=== PATIENT | male | born 1965 | race Two or more races ===

== ENCOUNTER 2021-02-27 12:06 | Inpatient (IN) | payer BC ==
[~2021-02-27] VITALS: Ht 182.9 cm; Wt 94.3 kg
[2021-02-27] VITALS (23 sets, daily range): BP systolic 118–151; BP diastolic 57–112
[2021-02-27] MEDS ORDERED: SODIUM CHLORIDE 0.9% 1,000 ML IV ONE (12:30)
[2021-02-27 12:58] LABS: HEMATOCRIT. 47.5 % (42.0-52.0); MEAN CORPUSCULAR VOLUME 85.3 fL (80.0-94.0); MEAN PLATELET VOLUME 8.6 fl (7.4-10.4); PLATELET 309 x1000/uL (130-400); RED BLOOD CELL COUNT 5.57 mill/uL (4.7-6.1); RED CELL DISTRIBUTION WIDTH 13.5 % (11.6-14.6)
[2021-02-27 13:03] LABS: CHLORIDE 110 mEq/L (98-107)
[2021-02-27 13:08] LABS: ETHANOL BLOOD < 10 mg/dL
[2021-02-27 13:20] LABS: CLARITY URINE CLEAR (CLEAR); COLOR URINE YELLOW (YELLOW); KETONES URINE NEGATIVE (NEGATIVE); LEUKOCYTE ESTERASE URINE NEGATIVE (NEGATIVE); NITRITE URINE NEGATIVE (NEGATIVE); OCCULT BLOOD URINE 3+ (NEGATIVE); PROTEIN URINE 2+ (NEGATIVE); SPECIFIC GRAVITY URINE 1.017 (1.005-1.030)
[2021-02-27 13:24] LABS: INR 1.2; PROTHROMBIN TIME 13.2 sec (9.6-11.0)
[2021-02-27 13:29] LABS: CREATINE KINASE 6831 IU/L (39-308)
[2021-02-27 13:40] LABS: *BARBITURATES SCREEN URINE NEGATIVE (NEGATIVE)
[2021-02-27 13:41] LABS: *AMPHETAMINES SCREEN URINE NEGATIVE (NEGATIVE); *BENZODIAZEPINES SCREEN URINE NEGATIVE (NEGATIVE); *COCAINE SCREEN URINE NEGATIVE (NEGATIVE); CANNABINOID URINE SCREEN NEGATIVE (NEGATIVE); METHADONE URINE SCREEN NEGATIVE (NEGATIVE); OPIATES URINE SCREEN NEGATIVE (NEGATIVE)
[2021-02-27 13:43] LABS: PHENCYCLIDINE URINE SCREEN NEGATIVE (NEGATIVE)
[2021-02-27 14:10] LABS: PLATELET ESTIMATE NORMAL
[2021-02-27] MEDS ORDERED: NICARDIPINE 40MG/200ML PREMIX 200 ML IV STA (14:12)
[2021-02-27] MEDS ORDERED: ONDANSETRON HCL 4MG/2ML INJ IV ONE (14:45)
[2021-02-27] MEDS: DEXT 5%/LACTATED RINGERS 1,000 ML IV SCH (19:54)
[2021-02-27] MEDS ORDERED: DEXTROSE 50% WATER 50ML SYRINGE IV PRN (20:45)
[2021-02-27] MEDS: BLOOD SUGAR DIAGNOSTIC STRIP TEST SCH (21:36)
[2021-02-27] MEDS: INSULIN LISPRO 100 UNITS/ML SUBCUT SCH (22:13)
[2021-02-28] VITALS (95 sets, daily range): BP systolic 95–170; BP diastolic 39–101
[2021-02-28] MEDS: DEXAMETHASONE 4MG/ML 1ML VIAL IV SCH ×4 (01:04→17:14)
[2021-02-28] MEDS: NICARDIPINE 100 MG in SODIUM CHLORIDE 0.9% 60 ML IV PRN ×2 (02:33→12:53)
[2021-02-28 04:54] LABS: HEMATOCRIT. 43.4 % (42.0-52.0); HEMOGLOBIN. 14.4 g/dL (14.0-18.0); MEAN PLATELET VOLUME 9.3 fl (7.4-10.4); PLATELET 265 x1000/uL (130-400); RED BLOOD CELL COUNT 5.36 mill/uL (4.7-6.1); RED CELL DISTRIBUTION WIDTH 13.4 % (11.6-14.6)
[2021-02-28 05:00] LABS: CHLORIDE 113 mEq/L (98-107)
[2021-02-28] MEDS: BLOOD SUGAR DIAGNOSTIC STRIP TEST SCH ×4 (06:30→21:00)
[2021-02-28] MEDS: INSULIN LISPRO 100 UNITS/ML SUBCUT SCH ×4 (06:35→22:24)
[2021-02-28] MEDS ORDERED: SODIUM CHLORIDE 0.9% 10ML VIAL ONE (08:07)
[2021-02-28] MEDS ORDERED: ETOMIDATE 2MG/ML 10ML VIAL IV ONE (08:07)
[2021-02-28] MEDS ORDERED: SUCCINYLCHOLINE CHLORIDE 200MG/10ML IV ONE (08:07)
[2021-02-28] MEDS: PANTOPRAZOLE SODIUM 40 MG/VIAL IV SCH (08:08)
[2021-02-28] MEDS: MORPHINE SULFATE 2 MG/ML CPJ (NOT FOR IM USE) IV PRN ×2 (08:09→14:24)
[2021-02-28] MEDS ORDERED: NALOXONE HCL 0.4MG/ML VIAL IV PRN (08:15)
[2021-02-28 10:58] LABS: PLATELET ESTIMATE NORMAL
[2021-02-28] MEDS ORDERED: MORPHINE SULFATE 2 MG/ML CPJ (NOT FOR IM USE) IV PRN (13:30)
[2021-02-28 14:07] LABS: BG CARBOXYHEMOGLOBIN 0.3 % (0.5-1.5); BG DEOXYHEMOGLOBIN 1.3 % (0.0-5.0); BG FRACTION INSPIRED OXYGEN 100; BG HCO3 ACT 7.1 mmol/L (22.0-26.0); BG METHEMOGLOBIN 0.5 % (0.0-1.5); BG OXYGEN SATURATION 98.7 % (92.0-98.5); BG OXYHEMOGLOBIN 97.9 % (94.0-97.0); BG PCO2 21.1 mmHg (35.0-45.0); BG PH 7.143 (7.350-7.450); BG PO2 195.2 mmHg (75.0-100.0); BG SAMPLE SITE RIGHT RADIAL; BG TOTAL HEMOGLOBIN 14.4 g/dL (12.0-18.0); BG VENT MODE MASK - NRB
[2021-02-28] MEDS ORDERED: SODIUM BICARBONATE 8.4% 1 MEQ/ML 50ML SYR IV NR (14:30)
[2021-02-28] MEDS: DEXT 5%/LACTATED RINGERS 1,000 ML IV SCH (14:37)
[2021-02-28] MEDS ORDERED: LEVETIRACETAM 500 MG in SODIUM CHLORIDE 0.9% 100 ML IV SCH (15:00)
[2021-02-28] MEDS ORDERED: LEVETIRACETAM 500MG PREMIX 100 ML IV SCH (15:00)
[2021-02-28] MEDS ORDERED: PROPOFOL 10MG/ML 100ML 100 ML IV PRN (15:45)
[2021-02-28] MEDS ORDERED: PHENYTOIN SODIUM 1,000 MG in SODIUM CHLORIDE 0.9% 100 ML IV SCH (16:00)
[2021-02-28] MEDS ORDERED: NOREPINEPHRINE 32 MG in DEXT 5% WATER 218 ML IV PRN (16:00)
[2021-02-28] MEDS: PROPOFOL 10MG/ML 100ML 100 ML IV PRN ×2 (16:00→23:03)
[2021-02-28] MEDS ORDERED: PHENYLEPHRINE 100 MG in DEXT 5% WATER 240 ML IV PRN (16:00)
[2021-02-28 17:05] LABS: BG BASE EXCESS -13.5 mmol/L (-2.0-2.0); BG CARBOXYHEMOGLOBIN 0.3 % (0.5-1.5); BG DEOXYHEMOGLOBIN 1.2 % (0.0-5.0); BG FRACTION INSPIRED OXYGEN 100; BG HCO3 ACT 11.4 mmol/L (22.0-26.0); BG METHEMOGLOBIN 0.8 % (0.0-1.5); BG OXYGEN SATURATION 98.8 % (92.0-98.5); BG OXYHEMOGLOBIN 97.7 % (94.0-97.0); BG PCO2 24.7 mmHg (35.0-45.0); BG PH 7.281 (7.350-7.450); BG PO2 221.7 mmHg (75.0-100.0); BG SAMPLE SITE RIGHT RADIAL; BG TOTAL HEMOGLOBIN 13.4 g/dL (12.0-18.0); BG VENT MODE PRVC
[2021-02-28] MEDS ORDERED: LORAZEPAM 2MG/ML CPJ IV PRN (17:45)
[2021-02-28] MEDS: SODIUM BICARBONATE 50 MEQ in SODIUM CHLORIDE 0.9% 1,000 ML IV SCH (20:17)
[2021-02-28] MEDS ORDERED: PHENYTOIN SODIUM 100MG/2ML VIAL IV SCH (22:00)
[2021-02-28] MEDS: INSULIN GLARGINE UD 100 UNITS/ML SYR SUBCUT SCH (22:25)
[2021-02-28] MEDS ORDERED: LEVETIRACETAM 1000MG PREMIX 100 ML IV SCH (23:00)
[2021-03-01] VITALS (96 sets, daily range): BP systolic 112–162; BP diastolic 55–128
[2021-03-01] MEDS: LEVETIRACETAM 1,000 MG in SODIUM CHLORIDE 0.9% 100 ML IV SCH ×3 (00:33→21:50)
[2021-03-01] MEDS: DEXAMETHASONE 4MG/ML 1ML VIAL IV SCH ×4 (00:33→17:36)
[2021-03-01] MEDS: PROPOFOL 10MG/ML 100ML 100 ML IV PRN ×4 (03:01→21:19)
[2021-03-01] MEDS ORDERED: VANCOMYCIN 1500MG in DEXTROSE 5% WATER 250ML IV NR (03:30)
[2021-03-01 04:57] LABS: HEMATOCRIT. 38.9 % (42.0-52.0); HEMOGLOBIN. 12.7 g/dL (14.0-18.0); MEAN CORPUSCULAR HEMOGLOBIN 26.5 pg (28.0-32.0); MEAN CORPUSCULAR VOLUME 81.2 fL (80.0-94.0); MEAN PLATELET VOLUME 9.4 fl (7.4-10.4); PLATELET 260 x1000/uL (130-400)
[2021-03-01 05:08] LABS: CHLORIDE 116 mEq/L (98-107)
[2021-03-01 05:17] LABS: PHOSPHORUS 6.3 mg/dL (2.5-4.9)
[2021-03-01] MEDS: SODIUM BICARBONATE 50 MEQ in SODIUM CHLORIDE 0.9% 1,000 ML IV SCH (05:47)
[2021-03-01] MEDS: BLOOD SUGAR DIAGNOSTIC STRIP TEST SCH ×4 (06:06→21:45)
[2021-03-01] MEDS: PIPERACILLIN/TAZOBACTAM 3.375 G in DEXTROSE 5% WATER 50 ML IV SCH ×2 (06:10→15:27)
[2021-03-01] MEDS: INSULIN LISPRO 100 UNITS/ML SUBCUT SCH ×4 (06:12→21:50)
[2021-03-01] MEDS: NICARDIPINE 100 MG in SODIUM CHLORIDE 0.9% 60 ML IV PRN ×2 (06:15→15:28)
[2021-03-01 06:38] LABS: CREATINE KINASE 23278 IU/L (39-308)
[2021-03-01] MEDS ORDERED: LIDOCAINE HCL 1% 10 MG/ML 10ML VIAL ONE (08:22)
[2021-03-01] MEDS: PANTOPRAZOLE SODIUM 40 MG/VIAL IV SCH (08:54)
[2021-03-01 09:36] LABS: BG BASE EXCESS -9.8 mmol/L (-2.0-2.0); BG CARBOXYHEMOGLOBIN 0.3 % (0.5-1.5); BG FRACTION INSPIRED OXYGEN 75; BG HCO3 ACT 14.3 mmol/L (22.0-26.0); BG METHEMOGLOBIN 0.3 % (0.0-1.5); BG OXYHEMOGLOBIN 98.4 % (94.0-97.0); BG PCO2 26.9 mmHg (35.0-45.0); BG PH 7.343 (7.350-7.450); BG SAMPLE SITE LEFT RADIAL; BG TOTAL HEMOGLOBIN 12.8 g/dL (12.0-18.0); BG VENT MODE PRVC
[2021-03-01] MEDS: INSULIN GLARGINE UD 100 UNITS/ML SYR SUBCUT SCH ×2 (10:30→22:59)
[2021-03-01] MEDS: SODIUM BICARBONATE 50 MEQ in DEXT 5%/0.2% NACL 1,000 ML IV SCH (15:27)
[2021-03-01 15:36] LABS: PLATELET ESTIMATE NORMAL
[2021-03-01] MEDS: CEFEPIME 1,000 MG in DEXTROSE 5% WATER 50 ML IV SCH (17:37)
[2021-03-02] VITALS (94 sets, daily range): BP systolic 120–176; BP diastolic 55–106
[2021-03-02] MEDS: DEXAMETHASONE 4MG/ML 1ML VIAL IV SCH
[2021-03-02] MEDS: SODIUM BICARBONATE 50 MEQ in DEXT 5%/0.2% NACL 1,000 ML IV SCH ×3 (01:53→22:28)
[2021-03-02] MEDS: PROPOFOL 10MG/ML 100ML 100 ML IV PRN ×5 (03:23→22:27)
[2021-03-02 04:50] LABS: HEMATOCRIT. 34.6 % (42.0-52.0); HEMOGLOBIN. 11.5 g/dL (14.0-18.0); MEAN CORPUSCULAR HEMOGLOBIN 27.7 pg (28.0-32.0); MEAN PLATELET VOLUME 9.5 fl (7.4-10.4); PLATELET 188 x1000/uL (130-400); RED BLOOD CELL COUNT 4.17 mill/uL (4.7-6.1); RED CELL DISTRIBUTION WIDTH 13.4 % (11.6-14.6)
[2021-03-02 05:00] LABS: CHLORIDE 113 mEq/L (98-107)
[2021-03-02 05:14] LABS: PHOSPHORUS 6.1 mg/dL (2.5-4.9)
[2021-03-02] MEDS: BLOOD SUGAR DIAGNOSTIC STRIP TEST SCH ×4 (05:46→20:33)
[2021-03-02] MEDS: INSULIN LISPRO 100 UNITS/ML SUBCUT SCH ×4 (06:11→20:35)
[2021-03-02 06:54] LABS: CREATINE KINASE 15400 IU/L (39-308)
[2021-03-02 08:10] LABS: PLATELET ESTIMATE NORMAL
[2021-03-02 08:24] LABS: BG BASE EXCESS -5.4 mmol/L (-2.0-2.0); BG CARBOXYHEMOGLOBIN 0.3 % (0.5-1.5); BG DEOXYHEMOGLOBIN 1.8 % (0.0-5.0); BG FRACTION INSPIRED OXYGEN 50; BG HCO3 ACT 19.1 mmol/L (22.0-26.0); BG METHEMOGLOBIN 0.5 % (0.0-1.5); BG OXYGEN SATURATION 98.2 % (92.0-98.5); BG OXYHEMOGLOBIN 97.4 % (94.0-97.0); BG PCO2 33.9 mmHg (35.0-45.0); BG PH 7.369 (7.350-7.450); BG PO2 140.3 mmHg (75.0-100.0); BG SAMPLE SITE RIGHT RADIAL; BG TOTAL HEMOGLOBIN 11.6 g/dL (12.0-18.0); BG VENT MODE PRVC
[2021-03-02] MEDS: PANTOPRAZOLE SODIUM 40 MG/VIAL IV SCH (08:47)
[2021-03-02] MEDS: LEVETIRACETAM 1,000 MG in SODIUM CHLORIDE 0.9% 100 ML IV SCH ×2 (08:48→20:33)
[2021-03-02] MEDS: INSULIN GLARGINE UD 100 UNITS/ML SYR SUBCUT SCH ×2 (10:52→22:28)
[2021-03-02] MEDS ORDERED: IPRATROPIUM/ALBUTEROL 0.5-3(2.5)MG/3ML NEB HHN PRN (17:00)
[2021-03-02] MEDS: CEFEPIME 1,000 MG in DEXTROSE 5% WATER 50 ML IV SCH (18:48)
[2021-03-02] MEDS: FENTANYL CITRATE/PF 2,500 MCG in SODIUM CHLORIDE 0.9% 200 ML IV PRN (19:30)
[2021-03-02] MEDS: NICARDIPINE 100 MG in SODIUM CHLORIDE 0.9% 60 ML IV PRN (19:42)
[2021-03-02] MEDS: HYDRALAZINE HCL 25MG TABLET PO SCH (20:35)
[2021-03-02 21:57] LABS: HEPATITIS B SURFACE ANTIGEN NEGATIVE
[2021-03-03] VITALS (89 sets, daily range): BP systolic 121–173; BP diastolic 55–83
[2021-03-03] MEDS: IPRATROPIUM/ALBUTEROL 0.5-3(2.5)MG/3ML NEB HHN SCH ×4 (01:55→20:30)
[2021-03-03] MEDS: PROPOFOL 10MG/ML 100ML 100 ML IV PRN ×7 (03:53→20:20)
[2021-03-03 04:07] LABS: *CREATININE RANDOM URINE 225.4 mg/dL (Not Estab.); MICROALBUMIN RANDOM URINE 324.3 ug/mL (Not Estab.)
[2021-03-03 05:20] LABS: CHLORIDE 105 mEq/L (98-107)
[2021-03-03 05:27] LABS: PHOSPHORUS 6.4 mg/dL (2.5-4.9)
[2021-03-03 05:30] LABS: HEMATOCRIT. 33.3 % (42.0-52.0); HEMOGLOBIN. 11.2 g/dL (14.0-18.0); MEAN CORPUSCULAR HEMOGLOBIN 27.6 pg (28.0-32.0); MEAN CORPUSCULAR VOLUME 81.7 fL (80.0-94.0); RED BLOOD CELL COUNT 4.07 mill/uL (4.7-6.1); RED CELL DISTRIBUTION WIDTH 13.5 % (11.6-14.6)
[2021-03-03 06:01] LABS: CREATINE KINASE 7856 IU/L (39-308)
[2021-03-03] MEDS: BLOOD SUGAR DIAGNOSTIC STRIP TEST SCH ×4 (06:28→23:32)
[2021-03-03] MEDS: INSULIN LISPRO 100 UNITS/ML SUBCUT SCH ×4 (06:28→23:36)
[2021-03-03 08:15] LABS: BG BASE EXCESS -1.8 mmol/L (-2.0-2.0); BG DEOXYHEMOGLOBIN 7.6 % (0.0-5.0); BG HCO3 ACT 22.3 mmol/L (22.0-26.0); BG METHEMOGLOBIN 0.8 % (0.0-1.5); BG OXYGEN SATURATION 92.3 % (92.0-98.5); BG OXYHEMOGLOBIN 90.6 % (94.0-97.0); BG PCO2 35.6 mmHg (35.0-45.0); BG PH 7.414 (7.350-7.450); BG PO2 68.7 mmHg (75.0-100.0); BG SAMPLE SITE RIGHT RADIAL; BG TOTAL HEMOGLOBIN 11.6 g/dL (12.0-18.0); BG VENT MODE VENT- PRVC
[2021-03-03] MEDS: LEVETIRACETAM 1,000 MG in SODIUM CHLORIDE 0.9% 100 ML IV SCH ×2 (09:11→21:07)
[2021-03-03] MEDS: PANTOPRAZOLE SODIUM 40 MG/VIAL IV SCH (09:11)
[2021-03-03] MEDS: INSULIN GLARGINE UD 100 UNITS/ML SYR SUBCUT SCH ×2 (09:12→21:09)
[2021-03-03] MEDS: HYDRALAZINE HCL 25MG TABLET PO SCH ×2 (09:14→21:07)
[2021-03-03] MEDS: SODIUM BICARBONATE 50 MEQ in DEXT 5%/0.2% NACL 1,000 ML IV SCH (09:16)
[2021-03-03] MEDS ORDERED: VANCOMYCIN 500 MG PREMIX 100 ML IV NR (12:00)
[2021-03-03 13:42] LABS: PLATELET 164 x1000/uL (130-400)
[2021-03-03 13:48] LABS: PLATELET ESTIMATE NORMAL
[2021-03-03] MEDS: NICARDIPINE 100 MG in SODIUM CHLORIDE 0.9% 60 ML IV PRN (14:32)
[2021-03-03] MEDS: CEFEPIME 1,000 MG in DEXTROSE 5% WATER 50 ML IV SCH (19:06)
[2021-03-03] MEDS: FENTANYL CITRATE/PF 2,500 MCG in SODIUM CHLORIDE 0.9% 200 ML IV PRN (20:12)
[2021-03-04] VITALS (101 sets, daily range): BP systolic 118–181; BP diastolic 50–110
[2021-03-04] MEDS: NICARDIPINE 100 MG in SODIUM CHLORIDE 0.9% 60 ML IV PRN ×3 (00:26→17:53)
[2021-03-04] MEDS: PROPOFOL 10MG/ML 100ML 100 ML IV PRN ×5 (00:28→23:33)
[2021-03-04] MEDS: IPRATROPIUM/ALBUTEROL 0.5-3(2.5)MG/3ML NEB HHN SCH ×4 (02:58→21:07)
[2021-03-04 05:10] LABS: PROTHROMBIN TIME 10.6 sec (9.6-11.0)
[2021-03-04 05:22] LABS: CHLORIDE 102 mEq/L (98-107)
[2021-03-04 05:30] LABS: PHOSPHORUS 6.1 mg/dL (2.5-4.9)
[2021-03-04] MEDS: BLOOD SUGAR DIAGNOSTIC STRIP TEST SCH ×4 (05:37→22:01)
[2021-03-04] MEDS: INSULIN LISPRO 100 UNITS/ML SUBCUT SCH ×4 (05:42→22:14)
[2021-03-04 05:45] LABS: BASOPHILS % 0.4 % (0.0-2.0); EOSINOPHILS % 1.1 % (0.0-5.0); HEMATOCRIT. 27.8 % (42.0-52.0); HEMOGLOBIN. 10.4 g/dL (14.0-18.0); MEAN CORPUSCULAR HEMOGLOBIN 30.3 pg (28.0-32.0); MEAN CORPUSCULAR VOLUME 81.4 fL (80.0-94.0); MEAN PLATELET VOLUME 10.2 fl (7.4-10.4); NEUTROPHILS % 81.5 % (40.0-76.0); PLATELET 147 x1000/uL (130-400); RED BLOOD CELL COUNT 3.42 mill/uL (4.7-6.1); RED CELL DISTRIBUTION WIDTH 13.5 % (11.6-14.6)
[2021-03-04 05:51] LABS: CREATINE KINASE 6770 IU/L (39-308)
[2021-03-04] MEDS: PANTOPRAZOLE SODIUM 40 MG/VIAL IV SCH (08:29)
[2021-03-04] MEDS: LEVETIRACETAM 1,000 MG in SODIUM CHLORIDE 0.9% 100 ML IV SCH ×2 (08:29→20:37)
[2021-03-04] MEDS: FENTANYL CITRATE/PF 2,500 MCG in SODIUM CHLORIDE 0.9% 200 ML IV PRN (08:48)
[2021-03-04] MEDS: MORPHINE SULFATE 2 MG/ML CPJ (NOT FOR IM USE) IV PRN ×2 (09:38→15:52)
[2021-03-04] MEDS: INSULIN GLARGINE UD 100 UNITS/ML SYR SUBCUT SCH ×2 (09:40→22:13)
[2021-03-04] MEDS: HYDRALAZINE HCL 25MG TABLET PO SCH ×2 (09:41→20:37)
[2021-03-04 11:05] LABS: BG CARBOXYHEMOGLOBIN 0.7 % (0.5-1.5); BG DEOXYHEMOGLOBIN 7.1 % (0.0-5.0); BG FRACTION INSPIRED OXYGEN 50; BG HCO3 ACT 25.8 mmol/L (22.0-26.0); BG METHEMOGLOBIN 2.1 % (0.0-1.5); BG OXYGEN SATURATION 92.7 % (92.0-98.5); BG OXYHEMOGLOBIN 90.1 % (94.0-97.0); BG PH 7.462 (7.350-7.450); BG PO2 66.6 mmHg (75.0-100.0); BG SAMPLE SITE LEFT RADIAL; BG VENT MODE PRVC
[2021-03-04] MEDS: CEFEPIME 1,000 MG in DEXTROSE 5% WATER 50 ML IV SCH (18:52)
[2021-03-04] MEDS ORDERED: VANCOMYCIN 750 MG PREMIX 150 ML IV NR (21:00)
[2021-03-04] MEDS: CLONIDINE 0.2MG TABLET PO SCH (22:12)
[2021-03-05] VITALS (108 sets, daily range): BP systolic 107–198; BP diastolic 49–133
[2021-03-05] MEDS: IPRATROPIUM/ALBUTEROL 0.5-3(2.5)MG/3ML NEB HHN SCH ×4 (01:10→19:52)
[2021-03-05] MEDS: FENTANYL CITRATE/PF 2,500 MCG in SODIUM CHLORIDE 0.9% 200 ML IV PRN ×3 (01:16→23:39)
[2021-03-05] MEDS: NICARDIPINE 100 MG in SODIUM CHLORIDE 0.9% 60 ML IV PRN ×2 (02:56→12:23)
[2021-03-05 05:56] LABS: CHLORIDE 97 mEq/L (98-107)
[2021-03-05] MEDS: BLOOD SUGAR DIAGNOSTIC STRIP TEST SCH ×3 (06:15→18:15)
[2021-03-05 06:23] LABS: PHOSPHORUS 6.9 mg/dL (2.5-4.9)
[2021-03-05] MEDS: CLONIDINE 0.2MG TABLET PO SCH ×3 (06:29→18:43)
[2021-03-05] MEDS: INSULIN LISPRO 100 UNITS/ML SUBCUT SCH ×3 (06:30→18:00)
[2021-03-05 06:49] LABS: CREATINE KINASE 4591 IU/L (39-308)
[2021-03-05] MEDS: PROPOFOL 10MG/ML 100ML 100 ML IV PRN ×2 (07:23→17:58)
[2021-03-05] MEDS: HYDRALAZINE HCL 25MG TABLET PO SCH (08:22)
[2021-03-05] MEDS: LEVETIRACETAM 1,000 MG in SODIUM CHLORIDE 0.9% 100 ML IV SCH ×2 (08:22→21:32)
[2021-03-05] MEDS: PANTOPRAZOLE SODIUM 40 MG/VIAL IV SCH (08:22)
[2021-03-05] MEDS: MORPHINE SULFATE 2 MG/ML CPJ (NOT FOR IM USE) IV PRN ×4 (08:24→21:34)
[2021-03-05] MEDS: INSULIN GLARGINE UD 100 UNITS/ML SYR SUBCUT SCH ×2 (11:14→22:22)
[2021-03-05] MEDS ORDERED: CLONIDINE 0.2MG TABLET PO SCH (12:30)
[2021-03-05 13:47] LABS: MEAN CORPUSCULAR VOLUME 79.2 fL (80.0-94.0); MEAN PLATELET VOLUME 9.1 fl (7.4-10.4); PLATELET 136 x1000/uL (130-400); RED BLOOD CELL COUNT 2.35 mill/uL (4.7-6.1); RED CELL DISTRIBUTION WIDTH 13.3 % (11.6-14.6)
[2021-03-05 14:19] LABS: HEMOGLOBIN. 6.5 g/dL (14.0-18.0)
[2021-03-05 14:20] LABS: HEMATOCRIT. 18.6 % (42.0-52.0); MEAN CORPUSCULAR HEMOGLOBIN 27.7 pg (28.0-32.0)
[2021-03-05 17:27] LABS: NUCLEATED RED BLOOD CELLS 2 /100 WBC
[2021-03-05 17:28] LABS: PLATELET ESTIMATE NORMAL
[2021-03-05] MEDS: CALCIUM CARBONATE 1,250 MG/5 ML UDC PO SCH (17:58)
[2021-03-05] MEDS: CEFEPIME 1,000 MG in DEXTROSE 5% WATER 50 ML IV SCH (18:01)
[2021-03-05] MEDS: HYDRALAZINE HCL 50MG TABLET PO SCH (21:33)
[2021-03-06] VITALS (62 sets, daily range): BP systolic 98–167; BP diastolic 49–99
[2021-03-06] MEDS: CLONIDINE 0.2MG TABLET PO SCH ×2 (00:02→06:10)
[2021-03-06] MEDS: MORPHINE SULFATE 2 MG/ML CPJ (NOT FOR IM USE) IV PRN ×3 (00:03→16:51)
[2021-03-06] MEDS: BLOOD SUGAR DIAGNOSTIC STRIP TEST SCH ×5 (00:32→23:08)
[2021-03-06] MEDS: IPRATROPIUM/ALBUTEROL 0.5-3(2.5)MG/3ML NEB HHN SCH ×4 (02:01→20:35)
[2021-03-06] MEDS: INSULIN LISPRO 100 UNITS/ML SUBCUT SCH ×5 (06:12→23:08)
[2021-03-06] MEDS: NICARDIPINE 100 MG in SODIUM CHLORIDE 0.9% 60 ML IV PRN (06:45)
[2021-03-06] MEDS: CALCIUM CARBONATE 1,250 MG/5 ML UDC PO SCH ×2 (06:57→17:00)
[2021-03-06] MEDS: FENTANYL CITRATE/PF 2,500 MCG in SODIUM CHLORIDE 0.9% 200 ML IV PRN ×3 (07:47→23:55)
[2021-03-06 08:53] LABS: BG BASE EXCESS -6.8 mmol/L (-2.0-2.0); BG CARBOXYHEMOGLOBIN 0.3 % (0.5-1.5); BG DEOXYHEMOGLOBIN 4.6 % (0.0-5.0); BG FRACTION INSPIRED OXYGEN 100; BG HCO3 ACT 18.7 mmol/L (22.0-26.0); BG METHEMOGLOBIN 1.5 % (0.0-1.5); BG OXYGEN SATURATION 95.3 % (92.0-98.5); BG OXYHEMOGLOBIN 93.6 % (94.0-97.0); BG PCO2 37.1 mmHg (35.0-45.0); BG PO2 84.3 mmHg (75.0-100.0); BG SAMPLE SITE RIGHT RADIAL; BG TOTAL HEMOGLOBIN 7.6 g/dL (12.0-18.0); BG VENT MODE PRVC
[2021-03-06] MEDS: LEVETIRACETAM 1,000 MG in SODIUM CHLORIDE 0.9% 100 ML IV SCH ×2 (09:16→21:45)
[2021-03-06] MEDS: PANTOPRAZOLE SODIUM 40 MG/VIAL IV SCH (09:16)
[2021-03-06] MEDS: HYDRALAZINE HCL 50MG TABLET PO SCH ×3 (09:17→21:46)
[2021-03-06 09:51] LABS: HEMATOCRIT. 22.7 % (42.0-52.0); MEAN CORPUSCULAR VOLUME 82.2 fL (80.0-94.0); MEAN PLATELET VOLUME 9.8 fl (7.4-10.4); PLATELET 186 x1000/uL (130-400); RED BLOOD CELL COUNT 2.76 mill/uL (4.7-6.1); RED CELL DISTRIBUTION WIDTH 13.4 % (11.6-14.6)
[2021-03-06 10:10] LABS: CHLORIDE 98 mEq/L (98-107)
[2021-03-06 10:16] LABS: PHOSPHORUS 7.7 mg/dL (2.5-4.9)
[2021-03-06 10:22] LABS: HEMOGLOBIN. 7.5 g/dL (14.0-18.0)
[2021-03-06 10:23] LABS: MEAN CORPUSCULAR HEMOGLOBIN 27.3 pg (28.0-32.0)
[2021-03-06 10:47] LABS: CREATINE KINASE 4040 IU/L (39-308)
[2021-03-06] MEDS: INSULIN GLARGINE UD 100 UNITS/ML SYR SUBCUT SCH ×2 (10:47→21:46)
[2021-03-06 11:42] LABS: NUCLEATED RED BLOOD CELLS 1 /100 WBC; PLATELET ESTIMATE NORMAL
[2021-03-06] MEDS ORDERED: SODIUM POLYSTYRENE SULFONATE 15 G/60 ML BOT PO NR (11:45)
[2021-03-06] MEDS: CLONIDINE 0.3MG TABLET PO SCH ×3 (12:00→23:07)
[2021-03-06] MEDS: ACETYLCYSTEINE 100MG/ML 10% VIAL 4ML INH SCH (16:00)
[2021-03-06] MEDS: MEROPENEM 1,000 MG in SODIUM CHLORIDE 0.9% 100 ML IV SCH (18:21)
[2021-03-06] MEDS: PROPOFOL 10MG/ML 100ML 100 ML IV PRN ×2 (18:40→22:54)
[2021-03-06 20:49] LABS: BG BASE EXCESS -2.4 mmol/L (-2.0-2.0); BG DEOXYHEMOGLOBIN 17.2 % (0.0-5.0); BG FRACTION INSPIRED OXYGEN 100; BG HCO3 ACT 23.4 mmol/L (22.0-26.0); BG METHEMOGLOBIN 0.6 % (0.0-1.5); BG OXYGEN SATURATION 82.7 % (92.0-98.5); BG OXYHEMOGLOBIN 82.2 % (94.0-97.0); BG PCO2 45.7 mmHg (35.0-45.0); BG PH 7.327 (7.350-7.450); BG PO2 53.6 mmHg (75.0-100.0); BG SAMPLE SITE RIGHT RADIAL; BG TOTAL HEMOGLOBIN 7.1 g/dL (12.0-18.0); BG VENT MODE PRVC
[2021-03-07] VITALS (103 sets, daily range): BP systolic 80–176; BP diastolic 46–109
[2021-03-07] MEDS: IPRATROPIUM/ALBUTEROL 0.5-3(2.5)MG/3ML NEB HHN SCH ×6 (00:25→21:16)
[2021-03-07] MEDS: ACETYLCYSTEINE 100MG/ML 10% VIAL 4ML INH SCH ×3 (00:25→16:05)
[2021-03-07 05:27] LABS: MEAN CORPUSCULAR VOLUME 81.6 fL (80.0-94.0); MEAN PLATELET VOLUME 9.2 fl (7.4-10.4); PLATELET 218 x1000/uL (130-400); RED CELL DISTRIBUTION WIDTH 13.7 % (11.6-14.6)
[2021-03-07] MEDS: HYDRALAZINE HCL 50MG TABLET PO SCH (05:46)
[2021-03-07] MEDS: BLOOD SUGAR DIAGNOSTIC STRIP TEST SCH ×3 (05:47→18:09)
[2021-03-07] MEDS: CLONIDINE 0.3MG TABLET PO SCH ×3 (05:47→17:48)
[2021-03-07 05:48] LABS: BG BASE EXCESS -5.7 mmol/L (-2.0-2.0); BG CARBOXYHEMOGLOBIN 0.3 % (0.5-1.5); BG DEOXYHEMOGLOBIN 12.5 % (0.0-5.0); BG FRACTION INSPIRED OXYGEN 100; BG HCO3 ACT 20.5 mmol/L (22.0-26.0); BG METHEMOGLOBIN 0.6 % (0.0-1.5); BG OXYGEN SATURATION 87.4 % (92.0-98.5); BG OXYHEMOGLOBIN 86.6 % (94.0-97.0); BG PCO2 44.1 mmHg (35.0-45.0); BG PH 7.285 (7.350-7.450); BG PO2 62.4 mmHg (75.0-100.0); BG SAMPLE SITE RIGHT RADIAL; BG VENT MODE PRVC
[2021-03-07] MEDS: CALCIUM CARBONATE 1,250 MG/5 ML UDC PO SCH ×2 (06:06→17:49)
[2021-03-07] MEDS: INSULIN LISPRO 100 UNITS/ML SUBCUT SCH ×3 (06:07→18:00)
[2021-03-07 07:21] LABS: HEMATOCRIT. 17.9 % (42.0-52.0); HEMOGLOBIN. 5.8 g/dL (14.0-18.0)
[2021-03-07 07:22] LABS: MEAN CORPUSCULAR HEMOGLOBIN 26.4 pg (28.0-32.0)
[2021-03-07] MEDS ORDERED: SODIUM POLYSTYRENE SULFONATE 15 G/60 ML BOT PO NR (09:30)
[2021-03-07] MEDS: LEVETIRACETAM 1,000 MG in SODIUM CHLORIDE 0.9% 100 ML IV SCH ×2 (09:33→21:28)
[2021-03-07] MEDS: PANTOPRAZOLE SODIUM 40 MG/VIAL IV SCH (09:33)
[2021-03-07] MEDS: INSULIN GLARGINE UD 100 UNITS/ML SYR SUBCUT SCH ×2 (09:35→21:30)
[2021-03-07] MEDS: METOPROLOL TARTRATE 100MG TABLET PO SCH ×2 (09:42→21:29)
[2021-03-07] MEDS: FENTANYL CITRATE/PF 2,500 MCG in SODIUM CHLORIDE 0.9% 200 ML IV PRN ×2 (09:54→18:07)
[2021-03-07] MEDS: PROPOFOL 10MG/ML 100ML 100 ML IV PRN ×3 (10:00→22:43)
[2021-03-07 11:52] LABS: NUCLEATED RED BLOOD CELLS 1 /100 WBC; PLATELET ESTIMATE NORMAL
[2021-03-07] MEDS: DILTIAZEM HCL 125 MG in DEXT 5% WATER 100 ML IV PRN (17:03)
[2021-03-07] MEDS: MEROPENEM 1,000 MG in SODIUM CHLORIDE 0.9% 100 ML IV SCH (17:49)
[2021-03-08] VITALS (96 sets, daily range): BP systolic 88–153; BP diastolic 44–75
[2021-03-08] MEDS: BLOOD SUGAR DIAGNOSTIC STRIP TEST SCH ×5 (00:23→23:35)
[2021-03-08 00:41] LABS: BG BASE EXCESS -0.6 mmol/L (-2.0-2.0); BG CARBOXYHEMOGLOBIN 0.3 % (0.5-1.5); BG DEOXYHEMOGLOBIN 15.1 % (0.0-5.0); BG FRACTION INSPIRED OXYGEN 100; BG HCO3 ACT 24.6 mmol/L (22.0-26.0); BG METHEMOGLOBIN 0.1 % (0.0-1.5); BG OXYGEN SATURATION 84.8 % (92.0-98.5); BG OXYHEMOGLOBIN 84.5 % (94.0-97.0); BG PCO2 42.6 mmHg (35.0-45.0); BG PH 7.379 (7.350-7.450); BG PO2 55.1 mmHg (75.0-100.0); BG SAMPLE SITE RIGHT RADIAL; BG TOTAL HEMOGLOBIN 7.9 g/dL (12.0-18.0); BG VENT MODE VENT: PRVC
[2021-03-08] MEDS: CLONIDINE 0.3MG TABLET PO SCH ×2 (00:53)
[2021-03-08] MEDS: FENTANYL CITRATE/PF 2,500 MCG in SODIUM CHLORIDE 0.9% 200 ML IV PRN ×3 (00:59→15:59)
[2021-03-08] MEDS: IPRATROPIUM/ALBUTEROL 0.5-3(2.5)MG/3ML NEB HHN SCH ×6 (01:53→20:43)
[2021-03-08] MEDS: ACETYLCYSTEINE 100MG/ML 10% VIAL 4ML INH SCH ×3 (01:53→16:27)
[2021-03-08] MEDS: PROPOFOL 10MG/ML 100ML 100 ML IV PRN ×3 (02:12→13:37)
[2021-03-08] MEDS: INSULIN LISPRO 100 UNITS/ML SUBCUT SCH ×5 (05:56→23:35)
[2021-03-08] MEDS: CALCIUM CARBONATE 1,250 MG/5 ML UDC PO SCH ×3 (06:02→22:07)
[2021-03-08 06:14] LABS: HEMATOCRIT. 23.8 % (42.0-52.0); MEAN CORPUSCULAR VOLUME 83.1 fL (80.0-94.0); MEAN PLATELET VOLUME 8.8 fl (7.4-10.4); PLATELET 243 x1000/uL (130-400); RED BLOOD CELL COUNT 2.87 mill/uL (4.7-6.1); RED CELL DISTRIBUTION WIDTH 14.5 % (11.6-14.6)
[2021-03-08 06:33] LABS: CHLORIDE 100 mEq/L (98-107)
[2021-03-08 06:41] LABS: CREATINE KINASE 833 IU/L (39-308)
[2021-03-08 07:35] LABS: BG BASE EXCESS -2.9 mmol/L (-2.0-2.0); BG CARBOXYHEMOGLOBIN 0.2 % (0.5-1.5); BG DEOXYHEMOGLOBIN 3.8 % (0.0-5.0); BG HCO3 ACT 22.4 mmol/L (22.0-26.0); BG METHEMOGLOBIN 0.6 % (0.0-1.5); BG OXYGEN SATURATION 96.2 % (92.0-98.5); BG OXYHEMOGLOBIN 95.4 % (94.0-97.0); BG PCO2 41.2 mmHg (35.0-45.0); BG PH 7.353 (7.350-7.450); BG SAMPLE SITE RIGHT RADIAL; BG TOTAL HEMOGLOBIN 7.7 g/dL (12.0-18.0); BG VENT MODE VENT- PRVC
[2021-03-08 07:36] LABS: MEAN CORPUSCULAR HEMOGLOBIN 27.9 pg (28.0-32.0)
[2021-03-08] MEDS: METOPROLOL TARTRATE 100MG TABLET PO SCH ×2 (09:00→22:06)
[2021-03-08] MEDS: PANTOPRAZOLE SODIUM 40 MG/VIAL IV SCH (09:43)
[2021-03-08] MEDS: METHYLPREDNISOLONE SOD SUCC 125 MG/2 ML VIAL IV SCH ×2 (09:45→18:00)
[2021-03-08] MEDS: INSULIN GLARGINE UD 100 UNITS/ML SYR SUBCUT SCH ×2 (09:46→23:36)
[2021-03-08] MEDS: LEVETIRACETAM 1,000 MG in SODIUM CHLORIDE 0.9% 100 ML IV SCH ×2 (09:46→22:06)
[2021-03-08 13:04] LABS: NUCLEATED RED BLOOD CELLS 3 /100 WBC
[2021-03-08 13:05] LABS: PLATELET ESTIMATE NORMAL
[2021-03-08] MEDS: CLONIDINE 0.2MG TABLET PO SCH ×2 (14:00→22:00)
[2021-03-08] MEDS: MIDAZOLAM HCL 100 MG in SODIUM CHLORIDE 0.9% 80 ML IV PRN (14:05)
[2021-03-08] MEDS: DILTIAZEM HCL 125 MG in DEXT 5% WATER 100 ML IV PRN (16:01)
[2021-03-08] MEDS: MEROPENEM 1,000 MG in SODIUM CHLORIDE 0.9% 100 ML IV SCH (18:00)
[2021-03-09] VITALS (95 sets, daily range): BP systolic 115–175; BP diastolic 54–99
[2021-03-09] MEDS: IPRATROPIUM/ALBUTEROL 0.5-3(2.5)MG/3ML NEB HHN SCH ×4 (00:28→21:23)
[2021-03-09] MEDS: ACETYLCYSTEINE 100MG/ML 10% VIAL 4ML INH SCH ×2 (00:28→07:42)
[2021-03-09] MEDS: FENTANYL CITRATE/PF 2,500 MCG in SODIUM CHLORIDE 0.9% 200 ML IV PRN ×2 (01:10→12:38)
[2021-03-09] MEDS: METHYLPREDNISOLONE SOD SUCC 125 MG/2 ML VIAL IV SCH ×3 (02:00→17:19)
[2021-03-09 05:48] LABS: HEMATOCRIT. 21.6 % (42.0-52.0); MEAN CORPUSCULAR VOLUME 83.4 fL (80.0-94.0); MEAN PLATELET VOLUME 8.9 fl (7.4-10.4); PLATELET 282 x1000/uL (130-400); RED BLOOD CELL COUNT 2.59 mill/uL (4.7-6.1); RED CELL DISTRIBUTION WIDTH 14.7 % (11.6-14.6)
[2021-03-09] MEDS: CLONIDINE 0.2MG TABLET PO SCH ×3 (06:00→23:00)
[2021-03-09 06:02] LABS: CHLORIDE 92 mEq/L (98-107)
[2021-03-09] MEDS: BLOOD SUGAR DIAGNOSTIC STRIP TEST SCH ×3 (06:22→17:20)
[2021-03-09] MEDS: CALCIUM CARBONATE 1,250 MG/5 ML UDC PO SCH ×2 (06:23→13:47)
[2021-03-09] MEDS: INSULIN LISPRO 100 UNITS/ML SUBCUT SCH ×3 (06:24→17:20)
[2021-03-09 06:40] LABS: HEMOGLOBIN. 7.4 g/dL (14.0-18.0)
[2021-03-09 06:41] LABS: MEAN CORPUSCULAR HEMOGLOBIN 28.6 pg (28.0-32.0)
[2021-03-09 06:49] LABS: PHOSPHORUS 9.4 mg/dL (2.5-4.9)
[2021-03-09] MEDS: DILTIAZEM HCL 125 MG in DEXT 5% WATER 100 ML IV PRN ×2 (08:45→18:24)
[2021-03-09] MEDS: LEVETIRACETAM 1,000 MG in SODIUM CHLORIDE 0.9% 100 ML IV SCH ×2 (09:58→21:55)
[2021-03-09] MEDS: METOPROLOL TARTRATE 100MG TABLET PO SCH ×2 (09:58→21:58)
[2021-03-09] MEDS: PANTOPRAZOLE SODIUM 40 MG/VIAL IV SCH (09:58)
[2021-03-09 10:02] LABS: NUCLEATED RED BLOOD CELLS 1 /100 WBC
[2021-03-09] MEDS: INSULIN GLARGINE UD 100 UNITS/ML SYR SUBCUT SCH (10:02)
[2021-03-09 10:03] LABS: PLATELET ESTIMATE NORMAL
[2021-03-09 11:20] LABS: BG BASE EXCESS 2.3 mmol/L (-2.0-2.0); BG CARBOXYHEMOGLOBIN 0.2 % (0.5-1.5); BG DEOXYHEMOGLOBIN 0.8 % (0.0-5.0); BG FRACTION INSPIRED OXYGEN 100; BG HCO3 ACT 26.7 mmol/L (22.0-26.0); BG METHEMOGLOBIN 0.5 % (0.0-1.5); BG OXYGEN SATURATION 99.2 % (92.0-98.5); BG OXYHEMOGLOBIN 98.5 % (94.0-97.0); BG PCO2 40.9 mmHg (35.0-45.0); BG PH 7.433 (7.350-7.450); BG SAMPLE SITE LEFT RADIAL
[2021-03-09] MEDS ORDERED: METOCLOPRAMIDE HCL 10MG/2ML VIAL IV SCH (12:00)
[2021-03-09] MEDS: METOCLOPRAMIDE HCL 10MG/2ML VIAL IV SCH ×2 (12:09→17:19)
[2021-03-09 12:37] LABS: BG BASE EXCESS -1.9 mmol/L (-2.0-2.0); BG CARBOXYHEMOGLOBIN 0.2 % (0.5-1.5); BG DEOXYHEMOGLOBIN 0.9 % (0.0-5.0); BG FRACTION INSPIRED OXYGEN 100; BG HCO3 ACT 22.4 mmol/L (22.0-26.0); BG METHEMOGLOBIN 0.5 % (0.0-1.5); BG OXYGEN SATURATION 99.1 % (92.0-98.5); BG OXYHEMOGLOBIN 98.4 % (94.0-97.0); BG PCO2 36.1 mmHg (35.0-45.0); BG PH 7.411 (7.350-7.450); BG PO2 271.6 mmHg (75.0-100.0); BG SAMPLE SITE RIGHT RADIAL; BG VENT MODE VENT - P/C
[2021-03-09 12:45] LABS: BG PEEP (cmH2O) 14 cmH2O; BG VENT MODE PC
[2021-03-09 12:46] LABS: BG PIP 26 cmH2O
[2021-03-09 12:49] LABS: BG VENT RATE 28 set
[2021-03-09 15:09] LABS: ANTI-CARDIOLIPIN AB IGA < 9 APL U/mL (0-11); ANTI-CARDIOLIPIN AB IGG 10 GPL U/mL (0-14); ANTI-CARDIOLIPIN AB IGM 14 MPL U/mL (0-12)
[2021-03-09] MEDS: MEROPENEM 1,000 MG in SODIUM CHLORIDE 0.9% 100 ML IV SCH (17:19)
[2021-03-10] VITALS (74 sets, daily range): BP systolic 117–167; BP diastolic 58–96
[2021-03-10] MEDS: CALCIUM CARBONATE 1,250 MG/5 ML UDC PO SCH ×2 (00:08→06:00)
[2021-03-10] MEDS: BLOOD SUGAR DIAGNOSTIC STRIP TEST SCH ×4 (00:09→17:27)
[2021-03-10] MEDS: INSULIN GLARGINE UD 100 UNITS/ML SYR SUBCUT SCH ×2 (00:15→09:02)
[2021-03-10] MEDS: INSULIN LISPRO 100 UNITS/ML SUBCUT SCH ×4 (00:15→17:29)
[2021-03-10] MEDS: IPRATROPIUM/ALBUTEROL 0.5-3(2.5)MG/3ML NEB HHN SCH ×6 (00:21→20:19)
[2021-03-10] MEDS: ACETYLCYSTEINE 100MG/ML 10% VIAL 4ML INH SCH ×3 (00:21→16:20)
[2021-03-10] MEDS: METOCLOPRAMIDE HCL 10MG/2ML VIAL IV SCH ×4 (01:34→17:27)
[2021-03-10] MEDS: METHYLPREDNISOLONE SOD SUCC 125 MG/2 ML VIAL IV SCH ×3 (01:34→17:26)
[2021-03-10] MEDS: MIDAZOLAM HCL 100 MG in SODIUM CHLORIDE 0.9% 80 ML IV PRN (05:01)
[2021-03-10] MEDS: FENTANYL CITRATE/PF 2,500 MCG in SODIUM CHLORIDE 0.9% 200 ML IV PRN ×2 (05:02→21:36)
[2021-03-10] MEDS: CLONIDINE 0.2MG TABLET PO SCH ×3 (05:05→22:00)
[2021-03-10] MEDS: DILTIAZEM HCL 125 MG in DEXT 5% WATER 100 ML IV PRN ×3 (05:10→21:53)
[2021-03-10 06:11] LABS: HEMATOCRIT. 21.7 % (42.0-52.0); HEMOGLOBIN. 7.8 g/dL (14.0-18.0); MEAN CORPUSCULAR HEMOGLOBIN 29.4 pg (28.0-32.0); MEAN PLATELET VOLUME 8.7 fl (7.4-10.4); PLATELET 265 x1000/uL (130-400); RED BLOOD CELL COUNT 2.64 mill/uL (4.7-6.1); RED CELL DISTRIBUTION WIDTH 15.2 % (11.6-14.6)
[2021-03-10 07:07] LABS: PHOSPHORUS 7.8 mg/dL (2.5-4.9)
[2021-03-10 08:22] LABS: BG BASE EXCESS -0.1 mmol/L (-2.0-2.0); BG CARBOXYHEMOGLOBIN 0.3 % (0.5-1.5); BG DEOXYHEMOGLOBIN 6.9 % (0.0-5.0); BG HCO3 ACT 24.2 mmol/L (22.0-26.0); BG METHEMOGLOBIN 0.4 % (0.0-1.5); BG OXYGEN SATURATION 93.1 % (92.0-98.5); BG OXYHEMOGLOBIN 92.4 % (94.0-97.0); BG PCO2 37.7 mmHg (35.0-45.0); BG PH 7.426 (7.350-7.450); BG PO2 70.1 mmHg (75.0-100.0); BG SAMPLE SITE RIGHT RADIAL; BG TOTAL HEMOGLOBIN 7.7 g/dL (12.0-18.0); BG VENT MODE VENT - P/C
[2021-03-10] MEDS: PANTOPRAZOLE SODIUM 40 MG/VIAL IV SCH (09:01)
[2021-03-10] MEDS: LEVETIRACETAM 1,000 MG in SODIUM CHLORIDE 0.9% 100 ML IV SCH ×2 (09:01→21:33)
[2021-03-10] MEDS: METOPROLOL TARTRATE 100MG TABLET PO SCH ×2 (09:01→21:34)
[2021-03-10 12:13] LABS: INR 1.1; PROTHROMBIN TIME 11.9 sec (9.6-11.0)
[2021-03-10 12:18] LABS: D-DIMER > 35.20 mg/L FEU (<0.50)
[2021-03-10 12:20] LABS: FIBRINOGEN > 900 mg/dL (200-400)
[2021-03-10 13:22] LABS: HAPTOGLOBIN 288 mg/dL (30-200)
[2021-03-10 13:22] LABS: NUCLEATED RED BLOOD CELLS 2 /100 WBC
[2021-03-10 13:23] LABS: PLATELET ESTIMATE NORMAL
[2021-03-10] MEDS: CALCIUM ACETATE 667MG CAPSULE PO SCH ×2 (14:21→17:27)
[2021-03-10 15:33] LABS: HEPATITIS B SURFACE ANTIGEN NEGATIVE
[2021-03-10] MEDS ORDERED: VANCOMYCIN 1,750 MG in DEXT 5% WATER 250 ML IV NR (16:00)
[2021-03-10] MEDS: MEROPENEM 1,000 MG in SODIUM CHLORIDE 0.9% 100 ML IV SCH (17:27)
[2021-03-11] VITALS (71 sets, daily range): BP systolic 116–213; BP diastolic 54–125
[2021-03-11] MEDS: ACETYLCYSTEINE 100MG/ML 10% VIAL 4ML INH SCH ×3 (00:23→15:44)
[2021-03-11] MEDS: IPRATROPIUM/ALBUTEROL 0.5-3(2.5)MG/3ML NEB HHN SCH ×6 (00:23→20:05)
[2021-03-11] MEDS: INSULIN GLARGINE UD 100 UNITS/ML SYR SUBCUT SCH ×3 (00:25→22:00)
[2021-03-11] MEDS: INSULIN LISPRO 100 UNITS/ML SUBCUT SCH ×4 (00:27→17:37)
[2021-03-11] MEDS: BLOOD SUGAR DIAGNOSTIC STRIP TEST SCH ×4 (00:27→17:36)
[2021-03-11] MEDS: METOCLOPRAMIDE HCL 10MG/2ML VIAL IV SCH ×4 (00:39→17:37)
[2021-03-11] MEDS: METHYLPREDNISOLONE SOD SUCC 125 MG/2 ML VIAL IV SCH ×3 (03:38→17:39)
[2021-03-11 05:57] LABS: CHLORIDE 94 mEq/L (98-107)
[2021-03-11] MEDS: CLONIDINE 0.2MG TABLET PO SCH ×3 (06:00→20:38)
[2021-03-11 06:04] LABS: HEMATOCRIT. 22.9 % (42.0-52.0); HEMOGLOBIN. 7.8 g/dL (14.0-18.0); MEAN CORPUSCULAR HEMOGLOBIN 28.2 pg (28.0-32.0); MEAN CORPUSCULAR VOLUME 82.3 fL (80.0-94.0); PLATELET 273 x1000/uL (130-400); RED BLOOD CELL COUNT 2.78 mill/uL (4.7-6.1); RED CELL DISTRIBUTION WIDTH 15.3 % (11.6-14.6)
[2021-03-11 06:12] LABS: CREATINE KINASE 404 IU/L (39-308)
[2021-03-11 06:35] LABS: PHOSPHORUS 8.6 mg/dL (2.5-4.9)
[2021-03-11] MEDS: CALCIUM ACETATE 667MG CAPSULE PO SCH ×3 (07:43→17:42)
[2021-03-11] MEDS: PANTOPRAZOLE SODIUM 40 MG/VIAL IV SCH (08:46)
[2021-03-11] MEDS: LEVETIRACETAM 1,000 MG in SODIUM CHLORIDE 0.9% 100 ML IV SCH ×2 (08:46→20:39)
[2021-03-11] MEDS: METOPROLOL TARTRATE 100MG TABLET PO SCH ×2 (08:48→20:38)
[2021-03-11 09:44] LABS: BG BASE EXCESS -4.3 mmol/L (-2.0-2.0); BG CARBOXYHEMOGLOBIN 0.2 % (0.5-1.5); BG DEOXYHEMOGLOBIN 1.5 % (0.0-5.0); BG FRACTION INSPIRED OXYGEN 60; BG HCO3 ACT 20.5 mmol/L (22.0-26.0); BG METHEMOGLOBIN 0.4 % (0.0-1.5); BG OXYGEN SATURATION 98.5 % (92.0-98.5); BG OXYHEMOGLOBIN 97.9 % (94.0-97.0); BG PCO2 36.1 mmHg (35.0-45.0); BG PH 7.372 (7.350-7.450); BG PO2 141.4 mmHg (75.0-100.0); BG SAMPLE SITE RIGHT RADIAL; BG TOTAL HEMOGLOBIN 8.1 g/dL (12.0-18.0); BG VENT MODE VENT - P/C
[2021-03-11] MEDS: FENTANYL CITRATE/PF 2,500 MCG in SODIUM CHLORIDE 0.9% 200 ML IV PRN (10:33)
[2021-03-11] MEDS: MIDAZOLAM HCL 100 MG in SODIUM CHLORIDE 0.9% 80 ML IV PRN (10:34)
[2021-03-11] MEDS ORDERED: BISACODYL 10MG SUPP PR NR (10:45)
[2021-03-11] MEDS ORDERED: BISACODYL 10MG SUPP PR PRN (10:45)
[2021-03-11 11:40] LABS: PLATELET ESTIMATE NORMAL
[2021-03-11] MEDS: MEROPENEM 1,000 MG in SODIUM CHLORIDE 0.9% 100 ML IV SCH (17:37)
[2021-03-11] MEDS: LACTULOSE 20G/30ML UDC NG SCH (20:39)
[2021-03-11] MEDS: NICARDIPINE 100 MG in SODIUM CHLORIDE 0.9% 60 ML IV PRN (20:47)
[2021-03-12] VITALS (100 sets, daily range): BP systolic 111–185; BP diastolic 52–103
[2021-03-12] MEDS: IPRATROPIUM/ALBUTEROL 0.5-3(2.5)MG/3ML NEB HHN SCH ×6 (00:04→20:24)
[2021-03-12] MEDS: BLOOD SUGAR DIAGNOSTIC STRIP TEST SCH ×5 (00:57→23:33)
[2021-03-12] MEDS: METOCLOPRAMIDE HCL 10MG/2ML VIAL IV SCH ×5 (01:04→23:35)
[2021-03-12] MEDS: INSULIN LISPRO 100 UNITS/ML SUBCUT SCH ×6 (01:05→23:33)
[2021-03-12] MEDS: METHYLPREDNISOLONE SOD SUCC 125 MG/2 ML VIAL IV SCH ×3 (01:05→17:23)
[2021-03-12] MEDS: FENTANYL CITRATE/PF 2,500 MCG in SODIUM CHLORIDE 0.9% 200 ML IV PRN ×3 (01:11→17:22)
[2021-03-12] MEDS: CLONIDINE 0.2MG TABLET PO SCH ×3 (05:39→23:32)
[2021-03-12] MEDS: LACTULOSE 20G/30ML UDC NG SCH ×3 (05:39→21:58)
[2021-03-12] MEDS: MIDAZOLAM HCL 100 MG in SODIUM CHLORIDE 0.9% 80 ML IV PRN (05:42)
[2021-03-12] MEDS: NICARDIPINE 100 MG in SODIUM CHLORIDE 0.9% 60 ML IV PRN ×2 (05:43→15:22)
[2021-03-12] MEDS: CALCIUM ACETATE 667MG CAPSULE PO SCH ×3 (06:01→15:36)
[2021-03-12 06:57] LABS: HEMOGLOBIN. 8.4 g/dL (14.0-18.0); MEAN CORPUSCULAR HEMOGLOBIN 28.7 pg (28.0-32.0); MEAN CORPUSCULAR VOLUME 82.2 fL (80.0-94.0); MEAN PLATELET VOLUME 8.8 fl (7.4-10.4); PLATELET 282 x1000/uL (130-400); RED BLOOD CELL COUNT 2.92 mill/uL (4.7-6.1); RED CELL DISTRIBUTION WIDTH 15.5 % (11.6-14.6)
[2021-03-12 07:07] LABS: CHLORIDE 100 mEq/L (98-107)
[2021-03-12 07:14] LABS: PHOSPHORUS 6.8 mg/dL (2.5-4.9)
[2021-03-12] MEDS: PANTOPRAZOLE SODIUM 40 MG/VIAL IV SCH (08:21)
[2021-03-12] MEDS: METOPROLOL TARTRATE 100MG TABLET PO SCH ×2 (08:22→21:59)
[2021-03-12 10:16] LABS: BG BASE EXCESS 0.9 mmol/L (-2.0-2.0); BG CARBOXYHEMOGLOBIN 0.3 % (0.5-1.5); BG DEOXYHEMOGLOBIN 1.4 % (0.0-5.0); BG FRACTION INSPIRED OXYGEN 90; BG HCO3 ACT 25.6 mmol/L (22.0-26.0); BG METHEMOGLOBIN 0.4 % (0.0-1.5); BG OXYGEN SATURATION 98.6 % (92.0-98.5); BG OXYHEMOGLOBIN 97.9 % (94.0-97.0); BG PCO2 40.9 mmHg (35.0-45.0); BG PH 7.414 (7.350-7.450); BG PO2 162.5 mmHg (75.0-100.0); BG SAMPLE SITE RIGHT RADIAL; BG TOTAL RESPIRATORY RATE 28 b/min; BG VENT MODE VENT - P/C
[2021-03-12] MEDS: LEVETIRACETAM 1,000 MG in SODIUM CHLORIDE 0.9% 100 ML IV SCH ×2 (10:29→22:00)
[2021-03-12 10:40] LABS: NUCLEATED RED BLOOD CELLS 1 /100 WBC; PLATELET ESTIMATE NORMAL
[2021-03-12] MEDS: INSULIN GLARGINE UD 100 UNITS/ML SYR SUBCUT SCH ×2 (10:58→23:35)
[2021-03-12] MEDS ORDERED: AMLODIPINE 5MG TABLET PO SCH (15:45)
[2021-03-12] MEDS: MEROPENEM 1,000 MG in SODIUM CHLORIDE 0.9% 100 ML IV SCH (17:21)
[2021-03-12] MEDS ORDERED: CLONIDINE HCL 0.3MG/24HR PATCH TD SCH (18:00)
[2021-03-12 18:46] LABS: CREATINE KINASE 332 IU/L (39-308)
[2021-03-13] VITALS (13 sets, daily range): BP systolic 119–142; BP diastolic 59–79
[2021-03-13] MEDS: IPRATROPIUM/ALBUTEROL 0.5-3(2.5)MG/3ML NEB HHN SCH (00:08)
[2021-03-13] MEDS: METHYLPREDNISOLONE SOD SUCC 125 MG/2 ML VIAL IV SCH (03:00)
[2021-03-13] MEDS ORDERED: MEROPENEM 1,000 MG in SODIUM CHLORIDE 0.9% 100 ML IV SCH (17:00)
== END 2021-03-13 03:25 | disposition short-term general hospital (02) | DRG 870 ==
LOC: ER 12:06 → CANRESERV 17:49 → ENRESERV 17:49 → MICUSO 19:25 → MICUNO 03-09 17:07
PROVIDERS: ADMIT Internal Medicine; ATTEND Internal Medicine
PROC: 5A1955Z Respiratory Ventilation, Greater than 96 Consecutive Hours (ICD-10-PCS; principal; 2021-02-28)
PROC: 0BH17EZ Insertion of Endotracheal Airway into Trachea, Via Natural or Artificial Opening (ICD-10-PCS; 2021-02-28)
PROC: 02HV33Z Insertion of Infusion Device into Superior Vena Cava, Percutaneous Approach (ICD-10-PCS; 2021-03-01)
PROC: 02HV33Z Insertion of Infusion Device into Superior Vena Cava, Percutaneous Approach (ICD-10-PCS; 2021-03-01)
PROC: B548ZZA Ultrasonography of Superior Vena Cava, Guidance (ICD-10-PCS; 2021-03-01)
PROC: B548ZZA Ultrasonography of Superior Vena Cava, Guidance (ICD-10-PCS; 2021-03-01)
PROC: 5A1D70Z Performance of Urinary Filtration, Intermittent, Less than 6 Hours Per Day (ICD-10-PCS; 2021-03-02)
PROC: 4A10X4Z Monitoring of Central Nervous Electrical Activity, External Approach (ICD-10-PCS; 2021-03-03)
PROC: 5A1D70Z Performance of Urinary Filtration, Intermittent, Less than 6 Hours Per Day (ICD-10-PCS; 2021-03-04)
PROC: 5A1D70Z Performance of Urinary Filtration, Intermittent, Less than 6 Hours Per Day (ICD-10-PCS; 2021-03-05)
PROC: 30233N1 Transfusion of Nonautologous Red Blood Cells into Peripheral Vein, Percutaneous Approach (ICD-10-PCS; 2021-03-05)
PROC: 5A1D70Z Performance of Urinary Filtration, Intermittent, Less than 6 Hours Per Day (ICD-10-PCS; 2021-03-06)
PROC: 5A1D70Z Performance of Urinary Filtration, Intermittent, Less than 6 Hours Per Day (ICD-10-PCS; 2021-03-07)
PROC: 5A12012 Performance of Cardiac Output, Single, Manual (ICD-10-PCS; 2021-03-07)
PROC: 5A1D70Z Performance of Urinary Filtration, Intermittent, Less than 6 Hours Per Day (ICD-10-PCS; 2021-03-09)
PROC: 0BH17EZ Insertion of Endotracheal Airway into Trachea, Via Natural or Artificial Opening (ICD-10-PCS; 2021-03-10)
PROC: 4A10X4Z Monitoring of Central Nervous Electrical Activity, External Approach (ICD-10-PCS; 2021-03-11)
PROC: 5A1D70Z Performance of Urinary Filtration, Intermittent, Less than 6 Hours Per Day (ICD-10-PCS; 2021-03-11)
DX: A41.50 Gram-negative sepsis, unspecified (principal); I61.4 Nontraumatic intracerebral hemorrhage in cerebellum; K72.00 Acute and subacute hepatic failure without coma; J69.0 Pneumonitis due to inhalation of food and vomit; J15.1 Pneumonia due to Pseudomonas; I46.9 Cardiac arrest, cause unspecified; G93.41 Metabolic encephalopathy; I63.9 Cerebral infarction, unspecified; J80 Acute respiratory distress syndrome; E87.0 Hyperosmolality and hypernatremia; M62.82 Rhabdomyolysis; N17.9 Acute kidney failure, unspecified; E87.1 Hypo-osmolality and hyponatremia; G81.94 Hemiplegia, unspecified affecting left nondominant side; T85.628A Displacement of other specified internal prosthetic devices, implants and grafts, initial encounter; E46 Unspecified protein-calorie malnutrition; K76.0 Fatty (change of) liver, not elsewhere classified; Z20.822 Contact with and (suspected) exposure to COVID-19; R65.20 Severe sepsis without septic shock; G40.401 Other generalized epilepsy and epileptic syndromes, not intractable, with status epilepticus; D64.9 Anemia, unspecified; E87.5 Hyperkalemia; E83.39 Other disorders of phosphorus metabolism; E11.649 Type 2 diabetes mellitus with hypoglycemia without coma; E11.65 Type 2 diabetes mellitus with hyperglycemia; E11.22 Type 2 diabetes mellitus with diabetic chronic kidney disease; N18.30 Chronic kidney disease, stage 3 unspecified; I12.9 Hypertensive chronic kidney disease with stage 1 through stage 4 chronic kidney disease, or unspecified chronic kidney disease; I48.91 Unspecified atrial fibrillation; Y84.8 Other medical procedures as the cause of abnormal reaction of the patient, or of later complication, without mention of misadventure at the time of the procedure; Y92.238 Other place in hospital as the place of occurrence of the external cause; T38.0X5A Adverse effect of glucocorticoids and synthetic analogues, initial encounter; Y92.89 Other specified places as the place of occurrence of the external cause; Z68.28 Body mass index [BMI] 28.0-28.9, adult; Z99.2 Dependence on renal dialysis; G40.909 Epilepsy, unspecified, not intractable, without status epilepticus
CPT/HCPCS: 31500; 36415; 36600; 70551; 71045; 71250; 72192; 73700; 74018; 74176; 76705; 76770; 76937; 80048; 80053; 80076; 80202; 80305; 80320; 81003; 82010; 82043; 82140; 82248; 82270; 82330; 82375; 82550; 82570; 82805; 82962; 83010; 83036; 83605; 83615; 83735; 83935; 84100; 84145; 84300; 84443; 84478; 84484; 85025; 85044; 85362; 85379; 85384; 86141; 86147; 86705; 86709; 86803; 86850; 86880; 86900; 86920; 87070; 87077; 87106; 87186; 87340; 87426; 93005; 93306; 93880; 93970; 94002; 94003; 94640; 94667; 95816; 97161; 99285; C1725; C1769; C9113; J0330; J0692; J1100; J1165; J1815; J1953; J2060; J2185; J2250; J2270; J2370; J2405; J2543; J2704; J2765; J2930; J3010; J3370; J3490; J7030; J7040; J7050; J7060; J7121; J7608; P9016; U0003; U0005; G0480